=== PATIENT | female | born 1980 | race Caucasian/White ===

== ENCOUNTER 2018-12-21 09:45 | Emergency (ER) | payer OTHER ==
[2018-12-21] MEDS ORDERED: NALOXONE HCL 0.4 MG/ML VIAL IVPUSH ONE (09:54)
[2018-12-21] MEDS ORDERED: HALOPERIDOL LACTATE 5 MG/ML ONE (10:12)
--- NOTE | 2018-12-21 10:42 | PDOC ---
History of Present Illness - General Chief Complaint: Overdose Stated Complaint: OVERDOSE Time Seen by Provider: 12/21/18 09:57 Past History - Past Medical History Allergies/Adverse Reactions: Allergies Allergy/AdvReac Type Severity Reaction Status Date / Time No Known Allergies Allergy Verified 12/21/18 10:58 ED Treatment Course - LABORATORY CBC & Chemistry Diagram: 12/21/18 09:53 12/21/18 09:53 Medical Decision Making - Medical Decision Making 12/21/18 12:04 38 year old woman with unknown history presents after being found down in [facility]. Upon arrival to the ED her pupils were pinpoint and she was unarousable. She was satting 100 on RA. ROS - cannot be obtained PE GENERAL: obtunded HEAD: No signs of trauma, normocephalic, atraumatic EYES: pinpoint, sclera anicteric, conjunctiva clear ENT: oropharynx clear without exudates. Moist mucosa NECK: Normal ROM, supple LUNGS: No distress, speaks full sentences, clear to auscultation bilaterally HEART: Regular rate and rhythm, normal S1 and S2, no murmurs, rubs or gallops, peripheral pulses normal and equal bilaterally. ABDOMEN: Soft, nontender, normoactive bowel sounds. No guarding, no rebound. No masses EXTREMITIES : track haas noted, Normal range of motion, no edema. No clubbing or cyanosis. NEUROLOGICAL: obtunded SKIN: Warm, Dry, normal turgor, no rashes or lesions noted MDM 38 year old woman with unknown history presents after being found down in [facility]. Upon arrival to the ED her pupils were pinpoint and she was unarousable. DDX including but not limited to: opioid overdose vs polysubstance abuse r.o infectious vs intracranial pathology r/o hypoglycemia W/U: - cbc, cmp, salyiciliate, acetaminophen, ekg, cxr, head ct, utox, upreg TX: - narcan ED Course: BP 120/78, satting 100 on RA, HR 70s EKG: normal sinus rhythm HR 76, no interval abnormalities, narrow QRS, ST and T wave segments and morphology normal. Narcan was given at bedside, patient became agitated, requiring soft wrist restraints Haldol was given as patient began hitting her head on the bed side rails. Apparent threat to self. labs- wnl positive Head CT: without acute intracranial pathology Patient awake, occasional lethargic but able to hold conversation. Refuses detox and requests to go home Patient expresses capacity and is able to ambulate without difficulty. D/C Deloris Roque, PGY2 Emergency Medicine *DC/Admit/Observation/Transfer Diagnosis at time of Disposition: Heroin overdose - Discharge Dispostion Disposition: HOME Condition at time of disposition: Fair Decision to Admit order: No - Referrals - Patient Instructions Printed Discharge Instructions: DI for Drug Overdose in Adults Additional Instructions: You were seen in the ED for heroin overdose. You were treated with narcan. Labwork and imaging was done. Results were significant for positive test. You refused detox. Return to the ED if you have a repeat overdose, experience nausea, vomiting, headache, loss of consciousness, chest pain or shortness of breath. - Post Discharge Activity
[2018-12-21 10:53] LABS: BASO % 0.8 % (0-2.0); EOS % 3.7 % (0-4.5); HEMATOCRIT 33.9 % (32.4-45.2); HEMOGLOBIN 11.6 GM/dL (10.7-15.3); LYMPH % 32.6 % (8-40); MCH 29.2 pg (25.7-33.7); MCHC 34.2 g/dl (32.0-36.0); MEAN CELL VOLUME 85.3 fl (80-96); MEAN PLT VOLUME 7.7 fl (7.5-11.1); MONO % 7.4 % (3.8-10.2); NEUT % 55.5 % (42.8-82.8); PLATELET COUNT 266 K/MM3 (134-434); RBC 3.98 M/mm3 (3.60-5.2); RDW 14.6 % (11.6-15.6); WHITE BLOOD COUNT 7.9 K/mm3 (4.0-10.0)
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
[2018-12-21 11:05] LABS: INR 1.12 (0.83-1.09); PROTHROMBIN TIME (PATIENT) 13.2 SEC (9.7-13.0)
[2018-12-21 11:08] LABS: ACTIVATED PTT 33.6 SECONDS (25.2-36.5)
[2018-12-21 11:11] VITALS: TEMP 98.1; BMI 17.2
[2018-12-21 11:37] LABS: ALBUMIN 3.4 g/dl (3.4-5.0); ALK PHOS 57 U/L (45-117); ANION GAP 8 MMOL/L (8-16); BILIRUBIN,TOTAL 0.2 mg/dL (0.2-1); BLOOD UREA NITROGEN 11.9 mg/dL (7-18); CALCIUM 8.9 mg/dL (8.5-10.1); CHLORIDE 104 mmol/L (98-107); CO2 25 mmol/L (21-32); CREATININE 0.5 mg/dL (0.55-1.3); GLUCOSE,RANDOM 77 mg/dL (74-106); POTASSIUM 3.5 mmol/L (3.5-5.1); SGOT/AST 12 U/L (15-37); SGPT/ALT 16 U/L (13-61); SODIUM 137 mmol/L (136-145); TOT PROT 6.6 g/dl (6.4-8.2)
[2018-12-21 15:45] VITALS: BP 125/77; PULSE 75
== END 2018-12-21 15:00 | disposition home or self-care (01) ==
LOC: JER 09:45
PROC: 3E033GC Introduction of Other Therapeutic Substance into Peripheral Vein, Percutaneous Approach (ICD-10-PCS; principal; 2018-12-21)
DX: T40.1X1A Poisoning by heroin, accidental (unintentional), initial encounter (principal)
CPT/HCPCS: 36415; 70450-TC; 80053; 80307; 83605; 84443; 84484; 84702; 84703; 85025; 85610; 85730; 99284-25